=== PATIENT | female | born 1975 | race African-American/Black ===

== ENCOUNTER 2016-11-26 11:37 | Emergency (ER) | payer MEDICAID ==
[2016-11-26] MEDS ORDERED: KETOROLAC TROMETHAMINE 60 MG/2 ML SDV IM ONE (11:56)
[2016-11-26] MEDS ORDERED: ONDANSETRON 4 MG TAB.RAPDIS SL ONE (11:56)
--- NOTE | 2016-11-26 11:58 | ER Document Report ---
ED GI/ - General Chief Complaint: Flank Pain Stated Complaint: RIGHT FLANK PAIN Time Seen by Provider: 11/26/16 11:51 Mode of Arrival: Wheelchair Information source: Patient TRAVEL OUTSIDE OF THE [place] IN LAST 30 DAYS: No - HPI Patient complains to provider of: Flank pain, Vomiting Onset: Yesterday Timing/Duration: Persistent, Waxing and waning Quality of pain: Achy, Sharp Severity at maximum: Severe Severity in ED: Severe Location: Right flank Associated symptoms: Nausea, Vomiting Notes: 11/26/16 11:57 Patient is a 41-year-old female who presents to the emergency room complaining of sharp stabbing right-sided flank pain that started yesterday, it is constant but the sharp increased nature comes and goes, she reports associated nausea and vomiting, denies any diarrhea, no dysuria, reports a history of similar type symptoms approximately 7 years ago when she had a cholecystectomy - Related Data Allergies/Adverse Reactions: aspirin Allergy (Mild, Verified 11/26/16 11:45) Syncope Past Medical History - General Information source: Patient - Social History Smoking Status: Never Smoker Family History: Reviewed & Not Pertinent Patient has suicidal ideation: No Patient has homicidal ideation: No - Past Medical History Cardiac Medical History: Reports: Hx Hypertension Endocrine Medical History: Reports: Hx Hypothyroidism Renal/ Medical History: Denies: Hx Peritoneal Dialysis Past Surgical History: Reports: Hx Cardiac Surgery - Immunizations Immunizations up to date: Yes Hx Diphtheria, Pertussis, Tetanus Vaccination: Yes Review of Systems - Review of Systems Constitutional: No symptoms reported EENT: No symptoms reported Cardiovascular: No symptoms reported Respiratory: No symptoms reported Gastrointestinal: See HPI Genitourinary: See HPI Female Genitourinary: No symptoms reported Musculoskeletal: No symptoms reported Skin: No symptoms reported Hematologic/Lymphatic: No symptoms reported Neurological/Psychological: No symptoms reported -: Yes All other systems reviewed and negative Physical Exam - Vital signs Vitals: Pulse Resp BP Pulse Ox 62 16 136/78 H 100 11/26/16 11:46 11/26/16 11:46 11/26/16 11:46 11/26/16 11:46 Interpretation: Normal - General General appearance: Alert In distress: None - appears in pain - HEENT Head: Normocephalic, Atraumatic Eyes: Normal Pupils: PERRL - Respiratory Respiratory status: No respiratory distress Chest status: Nontender Breath sounds: Normal Chest palpation: Normal - Cardiovascular Rhythm: Regular Heart sounds: Normal auscultation Murmur: No - Abdominal Inspection: Normal Distension: No distension Bowel sounds: Normal Tenderness: Nontender Organomegaly: No organomegaly - Back Back: Normal, CVA tenderness - right side - Extremities General upper extremity: Normal inspection, Nontender, Normal color, Normal ROM , Normal temperature General lower extremity: Normal inspection, Nontender, Normal color, Normal ROM , Normal temperature, Normal weight bearing. No: Sandeep's sign - Neurological Neuro grossly intact: Yes Cognition: Normal Orientation: AAOx4 [place] Coma Scale Eye Opening: Spontaneous [place] Coma Scale Verbal: Oriented [place] Coma Scale Motor: Obeys Commands Farrukh Coma Scale Total: 15 Speech: Normal Motor strength normal: LUE, RUE, LLE, RLE Sensory: Normal - Psychological Associated symptoms: Normal affect, Normal mood - Skin Skin Temperature: Warm Skin Moisture: Dry Skin Color: Normal Course - Vital Signs Vital signs: Temp Pulse Resp BP Pulse Ox 62 16 136/78 H 100 11/26/16 11:46 11/26/16 11:46 11/26/16 11:46 11/26/16 11:46
[2016-11-26 13:35] LABS: ALANINE AMINOTRANSFERASE 28 U/L (9-52); ALKALINE PHOSPHATASE 59 U/L (38-126); ANION GAP 13 (5-19); ASPARTATE AMINO TRANSFERASE 21 U/L (14-36); BILIRUBIN,DIRECT 0.3 mg/dL (0.0-0.4); BILIRUBIN,TOTAL 0.6 mg/dL (0.2-1.3); BLOOD UREA NITROGEN 16 mg/dL (7-20); CALCIUM 9.6 mg/dL (8.4-10.2); CARBON DIOXIDE 23 mmol/L (22-30); CHLORIDE 103 mmol/L (98-107); CREATININE RESULT 1.45 mg/dL (0.52-1.25); GLUCOSE 104 mg/dL (75-110); LIPASE 76.5 U/L (23-300); POTASSIUM 4.3 mmol/L (3.6-5.0); SODIUM 139.3 mmol/L (137-145); TOTAL PROTEIN 7.8 g/dL (6.3-8.2)
[2016-11-26 13:41] LABS: ABSOLUTE BASOPHILS # (AUTO) 0.1 10^3/uL (0.0-0.2); ABSOLUTE EOSINOPHILS # (AUTO) 0.1 10^3/uL (0.0-0.6); ABSOLUTE LYMPHOCYTES (AUTO) 0.7 10^3/uL (0.5-4.7); ABSOLUTE MONOCYTES (AUTO) 0.4 10^3/uL (0.1-1.4); ABSOLUTE NEUT (AUTO) 4.4 10^3/uL (1.7-8.2); BASOPHILS % (AUTO) 1.1 % (0-2); EOSINOPHILS % (AUTO) 1.1 % (0-6); HEMATOCRIT 35.9 % (36.0-47.0); HEMOGLOBIN 11.4 g/dL (12.0-15.5); HGB HCT DIFFERENCE -1.7; MEAN CORPUSCULAR HEMOGLOBIN 26.1 pg (27.0-33.4); MEAN CORPUSCULAR HGB CONC 31.8 g/dL (32.0-36.0); MEAN CORPUSCULAR VOLUME 82 fl (80-97); MONOCYTES % (AUTO) 6.3 % (3-13); RED BLOOD COUNT 4.37 10^6/uL (3.72-5.28); RED CELL DISTRIBUTION WIDTH 17.2 % (11.5-14.0); SEGMENTED NEUTROPHILS % (AUTO) 78.5 % (42-78); WHITE BLOOD COUNT 5.6 10^3/uL (4.0-10.5)
[2016-11-26 14:18] LABS: APPEARANCE,URINE SLIGHTLY-CLOUDY; BILIRUBIN,URINE NEGATIVE (NEGATIVE); GLUCOSE, URINE NEGATIVE (NEGATIVE); KETONES,URINE NEGATIVE (NEGATIVE); PROTEIN,URINE 30 mg/dL (NEGATIVE); URINE SPECIFIC GRAVITY 1.024
[2016-11-26 14:19] LABS: BACTERIA,URINE TRACE /HPF; LEUKOCYTE ESTERASE,URINE SMALL (NEGATIVE); NITRITE,URINE NEGATIVE (NEGATIVE); UROBILINOGEN,URINE NEGATIVE mg/dL (<2.0)
--- NOTE | 2016-11-26 14:28 | RADIOLOGY REPORT (SQ) ---
EXAM DESCRIPTION: CT LTD RENAL STONE PROTOCOL ON COMPLETED DATE/TIME: 11/26/2016 2:11 pm REASON FOR STUDY: flank pain COMPARISON: None. TECHNIQUE: CT scan of the abdomen and pelvis performed without intravenous or oral contrast. Images reviewed with lung, soft tissue, and bone windows. Reconstructed coronal and sagittal MPR images revi ewed. All images stored on PACS. All CT scanners at this facility use dose modulation, iterative reconstruction, and/or weight based d osing when appropriate to reduce radiation dose to as low as reasonably achievable (ALARA). [facility]: Dose Right [facility]: CareDose [facility]: Dose Right [facility]: Teradose 4D [facility]: [employer] RADIATION DOSE: Up-to-date CT equipment and radiation dose reduction techniques were employed. CTDIv ol: 16.1 mGy. DLP: 922 mGy-cm.mGy. LIMITATIONS: None. FINDINGS: LOWER CHEST: No significant findings. No nodules or infiltrates. NON-CONTRASTED LIVER, SPLEEN, ADRENALS: Evaluation limited by lack of IV contrast. No identified sign ificant masses. PANCREAS: No masses. No peripancreatic inflammatory changes. GALLBLADDER: The gallbladder is not identified. RIGHT KIDNEY AND URETER: There is right perinephric stranding. There is mild right-sided hydronephr osis and hydroureter. These changes are secondary to a 4.6 mm right UVJ stone. LEFT KIDNEY AND URETER: No suspicious masses. Assessment limited by lack of IV contrast. No signifi cant calcifications. No hydronephrosis or hydroureter. AORTA AND RETROPERITONEUM: No aneurysm. No retroperitoneal masses or adenopathy. BOWEL AND PERITONEAL CAVITY: No obvious masses or inflammatory changes. No free fluid. APPENDIX: Normal. PELVIS, BLADDER, AND ABDOMINAL WALL:No abnormal masses. No free fluid. Bladder normal. BONES: No significant findings. OTHER: No other significant finding. IMPRESSION: Right-sided hydronephrosis and perinephric stranding secondary to a 4.6 mm right UVJ sto ne. TECHNICAL DOCUMENTATION: JOB ID: [id number] Quality ID # [id number]: Final reports with documentation of one or more dose reduction techniques (e.g., Au tomated exposure control, adjustment of the mA and/or kV according to patient size, use of iterative reconstruction technique) 2010 [employer]- All Rights Reserved
--- NOTE | 2016-11-26 14:35 | ER Document Report ---
ED GI/ - General Mode of Arrival: Wheelchair Information source: Patient TRAVEL OUTSIDE OF THE [place] IN LAST 30 DAYS: No - HPI Patient complains to provider of: Abdominal pain - right side, Flank pain - right Onset: Yesterday Location: Right flank Associated symptoms: Other - see notes above <REBEKAH BASHIR - Last Filed: 11/26/16 15:20> <MARY KAY CLEMENS - Last Filed: 11/26/16 22:37> - General Chief Complaint: Flank Pain Stated Complaint: RIGHT FLANK PAIN Time Seen by Provider: 11/26/16 11:51 Notes: 41 year old female with history of kidney stones, hypertension, and hypothyroidism presents to the ED complaining of right sided abdominal pain and right flank pain that started yesterday. Patient is also complaining of nausea and vomiting, but denies fever. (REBEKAH BASHIR) - Related Data Allergies/Adverse Reactions: aspirin Allergy (Mild, Verified 11/26/16 11:45) Syncope Past Medical History - General Information source: Patient - Social History Smoking Status: Never Smoker Chew tobacco use (# tins/day): No Frequency of alcohol use: None Drug Abuse: None Family History: Reviewed & Not Pertinent Patient has suicidal ideation: No Patient has homicidal ideation: No - Past Medical History Cardiac Medical History: Reports: Hx Hypertension Endocrine Medical History: Reports: Hx Hypothyroidism Renal/ Medical History: Denies: Hx Peritoneal Dialysis Past Surgical History: Reports: Hx Cardiac Surgery - Immunizations Immunizations up to date: Yes Hx Diphtheria, Pertussis, Tetanus Vaccination: Yes <REBEKAH BASHIR - Last Filed: 11/26/16 15:20> Review of Systems - Review of Systems Constitutional: No symptoms reported. denies: Fever EENT: No symptoms reported Cardiovascular: No symptoms reported Respiratory: No symptoms reported Gastrointestinal: See HPI, Abdominal pain - right, Nausea, Vomiting Genitourinary: See HPI, Flank pain - right Female Genitourinary: No symptoms reported Musculoskeletal: No symptoms reported Skin: No symptoms reported Hematologic/Lymphatic: No symptoms reported Neurological/Psychological: No symptoms reported -: Yes All other systems reviewed and negative <REBEKAH BASHIR - Last Filed: 11/26/16 15:20> Physical Exam - General General appearance: Alert In distress: None - HEENT Head: Normocephalic, Atraumatic Eyes: Normal Extraocular movements intact: Yes Pupils: PERRL - Respiratory Respiratory status: No respiratory distress Breath sounds: Normal - Cardiovascular Rhythm: Regular Heart sounds: Normal auscultation - Abdominal Inspection: Normal Distension: No distension Tenderness: Nontender - Back Back: CVA tenderness - right. No: Normal - Extremities General upper extremity: Normal inspection, Normal ROM General lower extremity: Normal inspection, Normal ROM - Neurological Neuro grossly intact: Yes Cognition: Normal Orientation: AAOx4 [place] Coma Scale Eye Opening: Spontaneous [place] Coma Scale Verbal: Oriented [place] Coma Scale Motor: Obeys Commands Farrukh Coma Scale Total: 15 Speech: Normal - Psychological Associated symptoms: Normal affect, Normal mood - Skin Skin Temperature: Warm Skin Moisture: Dry Skin Color: Normal <REBEKAH BASHIR - Last Filed: 11/26/16 15:20> Course - Laboratory Result Diagrams: 11/26/16 12:34 11/26/16 12:34 <REBEKAH BASHIR - Last Filed: 11/26/16 15:20> - Laboratory Result Diagrams: 11/26/16 12:34 11/26/16 12:34 - Diagnostic Test Radiology reviewed: Reports reviewed <MARY KAY CLEMENS - Last Filed: 11/26/16 22:37> - Re-evaluation Re-evalutation: 11/26/16 Patient is a 40-year-old female who presents with flank pain, nausea and vomiting. Patient with 4.6 mm stone at UVJ in the right. Patient should be able to pass this on her own. Pain is controlled at this time. Patient will be discharged with Flomax, pain and nausea medicine. Stable for discharge. (MARY KAY CLEMENS) - Vital Signs Vital signs: Temp Pulse Resp BP Pulse Ox 97.6 F 63 18 128/83 H 98 11/26/16 14:41 11/26/16 14:41 11/26/16 14:41 11/26/16 14:41 11/26/16 14:41 - Laboratory Laboratory results interpreted by me: 11/26/16 11/26/16 11/26/16 12:34 12:34 12:34 Hgb 11.4 L Hct 35.9 L MCH 26.1 L MCHC 31.8 L RDW 17.2 H Seg Neutrophils % 78.5 H Creatinine 1.45 H Est GFR ( Amer) 48 L Est GFR (Non-Af Amer) 39 L Urine Protein 30 H Urine Blood LARGE H Ur Leukocyte Esterase SMALL H Discharge <REBEKAH BASHIR - Last Filed: 11/26/16 15:20> <MARY KAY CLEMENS - Last Filed: 11/26/16 22:37> - Discharge Clinical Impression: Kidney stone Condition: Stable Disposition: HOME, SELF-CARE Instructions: Kidney Stone ([facility]) Prescriptions: Ondansetron [Zofran Odt 4 mg Tablet] 1 tab PO Q6HP PRN #15 tab.rapdis PRN Reason: For Nausea/Vomiting Docusate Sodium [Colace 100 mg Capsule] 100 mg PO BID #60 capsule Oxycodone HCl/Acetaminophen [Percocet 5-325 mg Tablet] 1 - 2 tab PO Q4H PRN #20 tablet PRN Reason: Tamsulosin HCl [Flomax 0.4 mg Cap.sr] 0.4 mg PO DAILY #14 cap.sr.24h Forms: Return to Work Referrals: KHADIJAH ALEXANDER MD [ACTIVE STAFF] - Follow up as needed Scribe Attestation: 11/26/16 22:37 I personally performed the services described in the documentation, reviewed and edited the documentation which was dictated to the scribe in my presence, and it accurately records my words and actions. (MARY KAY CLEMENS) Scribe Documentation - Scribe Written by Scribe:: Viridiana Madrigal, 11/26/2016 1552 acting as scribe for :: Mak <REBEKAH BASHIR - Last Filed: 11/26/16 15:20>
--- NOTE | 2016-11-26 14:36 | ER Document Report ---
ED GI/ - General Chief Complaint: Flank Pain Stated Complaint: RIGHT FLANK PAIN Time Seen by Provider: 11/26/16 11:51 Mode of Arrival: Wheelchair TRAVEL OUTSIDE OF THE [place] IN LAST 30 DAYS: No - Related Data Allergies/Adverse Reactions: aspirin Allergy (Mild, Verified 11/26/16 11:45) Syncope Past Medical History - General Information source: Patient - Social History Smoking Status: Never Smoker Chew tobacco use (# tins/day): No Frequency of alcohol use: None Drug Abuse: None Family History: Reviewed & Not Pertinent Patient has suicidal ideation: No Patient has homicidal ideation: No - Past Medical History Cardiac Medical History: Reports: Hx Hypertension Endocrine Medical History: Reports: Hx Hypothyroidism Renal/ Medical History: Denies: Hx Peritoneal Dialysis Past Surgical History: Reports: Hx Cardiac Surgery - Immunizations Immunizations up to date: Yes Hx Diphtheria, Pertussis, Tetanus Vaccination: Yes Physical Exam - Vital signs Vitals: Pulse Resp BP Pulse Ox 62 16 136/78 H 100 11/26/16 11:46 11/26/16 11:46 11/26/16 11:46 11/26/16 11:46 Course - Vital Signs Vital signs: Temp Pulse Resp BP Pulse Ox 62 16 136/78 H 100 11/26/16 11:46 11/26/16 11:46 11/26/16 11:46 11/26/16 11:46 - Laboratory Result Diagrams: 11/26/16 12:34 11/26/16 12:34 Laboratory results interpreted by me: 11/26/16 11/26/16 11/26/16 12:34 12:34 12:34 Hgb 11.4 L Hct 35.9 L MCH 26.1 L MCHC 31.8 L RDW 17.2 H Seg Neutrophils % 78.5 H Creatinine 1.45 H Est GFR ( Amer) 48 L Est GFR (Non-Af Amer) 39 L Urine Protein 30 H Urine Blood LARGE H Ur Leukocyte Esterase SMALL H Discharge - Discharge Clinical Impression: Kidney stone Condition: Stable Disposition: HOME, SELF-CARE Instructions: Kidney Stone ([facility]) Prescriptions: Ondansetron [Zofran Odt 4 mg Tablet] 1 tab PO Q6HP PRN #15 tab.rapdis PRN Reason: For Nausea/Vomiting Docusate Sodium [Colace 100 mg Capsule] 100 mg PO BID #60 capsule Oxycodone HCl/Acetaminophen [Percocet 5-325 mg Tablet] 1 - 2 tab PO Q4H PRN #20 tablet PRN Reason: Tamsulosin HCl [Flomax 0.4 mg Cap.sr] 0.4 mg PO DAILY #14 cap.sr.24h Forms: Return to Work Referrals: KHADIJAH ALEXADNER MD [ACTIVE STAFF] - Follow up as needed
[2016-11-26 14:43] VITALS: BP 128/83
--- NOTE | 2016-11-26 21:14 | ER Document Report ---
ED Medical Screen (RME) - General Chief Complaint: Flank Pain Stated Complaint: RIGHT FLANK PAIN Time Seen by Provider: 11/26/16 11:51 Mode of Arrival: Wheelchair TRAVEL OUTSIDE OF THE [place] IN LAST 30 DAYS: No - HPI Patient complains to provider of: flank pain Notes: 11/26/16 11:57 Patient is a 41-year-old female who presents to the emergency room complaining of sharp stabbing right-sided flank pain that started yesterday, it is constant but the sharp increased nature comes and goes, she reports associated nausea and vomiting, denies any diarrhea, no dysuria, reports a history of similar type symptoms approximately 7 years ago when she had a cholecystectomy - Related Data Allergies/Adverse Reactions: aspirin Allergy (Mild, Verified 11/26/16 11:45) Syncope Past Medical History - Social History Chew tobacco use (# tins/day): No Frequency of alcohol use: None Drug Abuse: None - Past Medical History Cardiac Medical History: Reports: Hx Hypertension Endocrine Medical History: Reports: Hx Hypothyroidism Renal/ Medical History: Denies: Hx Peritoneal Dialysis Past Surgical History: Reports: Hx Cardiac Surgery - Immunizations Immunizations up to date: Yes Hx Diphtheria, Pertussis, Tetanus Vaccination: Yes Physical Exam - Vital signs Vitals: Pulse Resp BP Pulse Ox 62 16 136/78 H 100 11/26/16 11:46 11/26/16 11:46 11/26/16 11:46 11/26/16 11:46 Course - Vital Signs Vital signs: Temp Pulse Resp BP Pulse Ox 97.6 F 63 18 128/83 H 98 11/26/16 14:41 11/26/16 14:41 11/26/16 14:41 11/26/16 14:41 11/26/16 14:41 - Laboratory Result Diagrams: 11/26/16 12:34 11/26/16 12:34 Laboratory results interpreted by me: 11/26/16 11/26/16 11/26/16 12:34 12:34 12:34 Hgb 11.4 L Hct 35.9 L MCH 26.1 L MCHC 31.8 L RDW 17.2 H Seg Neutrophils % 78.5 H Creatinine 1.45 H Est GFR ( Amer) 48 L Est GFR (Non-Af Amer) 39 L Urine Protein 30 H Urine Blood LARGE H Ur Leukocyte Esterase SMALL H Doctor's Discharge - Discharge Clinical Impression: Kidney stone Condition: Stable Disposition: HOME, SELF-CARE Instructions: Kidney Stone ([facility]) Prescriptions: Ondansetron [Zofran Odt 4 mg Tablet] 1 tab PO Q6HP PRN #15 tab.rapdis PRN Reason: For Nausea/Vomiting Docusate Sodium [Colace 100 mg Capsule] 100 mg PO BID #60 capsule Oxycodone HCl/Acetaminophen [Percocet 5-325 mg Tablet] 1 - 2 tab PO Q4H PRN #20 tablet PRN Reason: Tamsulosin HCl [Flomax 0.4 mg Cap.sr] 0.4 mg PO DAILY #14 cap.sr.24h Forms: Return to Work Referrals: KHADIJAH ALEXANDER MD [ACTIVE STAFF] - Follow up as needed
== END 2016-11-26 14:43 | disposition home or self-care (01) ==
LOC: ER 11:37
DX: N13.2 Hydronephrosis with renal and ureteral calculous obstruction (principal); R11.2 Nausea with vomiting, unspecified; R10.9 Unspecified abdominal pain; I10 Essential (primary) hypertension; Z90.49 Acquired absence of other specified parts of digestive tract; Z88.6 Allergy status to analgesic agent
CPT/HCPCS: 99284; 96372; 36415; 87086; 83690; 84703; 85025; 80053; 81001; 76380; J1885; S0119

== ENCOUNTER → 2017-05-23 | Outpatient (CLI) | payer MEDICAID ==
[2017-05-23 10:32] LABS: POTASSIUM 4.3 mmol/L (3.6-5.0)
== END ==
LOC: OD 09:38
PROVIDERS: ATTEND Nurse Practitioner Acute Care
DX: E87.1 Hypo-osmolality and hyponatremia (principal)
CPT/HCPCS: 36415; 80051

== ENCOUNTER 2017-11-11 06:04 | Emergency (ER) | payer SELFPAY ==
[2017-11-11] MEDS ORDERED: MECLIZINE HCL 25 MG TABLET PO ONE (06:58)
[2017-11-11] MEDS ORDERED: ONDANSETRON HCL INJ/PF 4 MG/2 ML SDV IM ONE (06:58)
--- NOTE | 2017-11-11 06:58 | ER Document Report ---
ED Dizziness/Weakness - General Mode of Arrival: Ambulatory Information source: Patient TRAVEL OUTSIDE OF THE [place] IN LAST 30 DAYS: No - General Chief Complaint: Dizziness Stated Complaint: DIZZY/VOMITING Time Seen by Provider: 11/11/17 06:43 Notes: Patient is a 41-year-old female with hypertension, depression and hypothyroidism presents to the emergency department complaining of dizziness onset yesterday. Patient states that the dizziness is severely exacerbated when laying down and moving head from side to side. Patient's associated symptoms include nausea. Patient is currently taking Celexia, Sartell Thyroid and Lisinopril. (MAYKEL,TAMAYA) - Related Data Allergies/Adverse Reactions: aspirin Allergy (Mild, Verified 11/11/17 06:05) Syncope Past Medical History - General Information source: Patient - Social History Smoking Status: Never Smoker Chew tobacco use (# tins/day): No Frequency of alcohol use: None Drug Abuse: None Family History: Reviewed & Not Pertinent Patient has suicidal ideation: No Patient has homicidal ideation: No - Past Medical History Cardiac Medical History: Reports: Hx Hypertension Endocrine Medical History: Reports: Hx Hypothyroidism Past Surgical History: Reports: Hx Cardiac Surgery - in 1999., Hx Cholecystectomy - Immunizations Immunizations up to date: Yes Hx Diphtheria, Pertussis, Tetanus Vaccination: Yes Review of Systems - Review of Systems Constitutional: No symptoms reported EENT: No symptoms reported Cardiovascular: See HPI, Dizziness Respiratory: No symptoms reported Gastrointestinal: See HPI, Nausea Genitourinary: No symptoms reported Female Genitourinary: No symptoms reported Musculoskeletal: No symptoms reported Skin: No symptoms reported Hematologic/Lymphatic: No symptoms reported Neurological/Psychological: No symptoms reported -: Yes All other systems reviewed and negative Physical Exam - General General appearance: Appears well, Alert In distress: None - HEENT Head: Normocephalic, Atraumatic Eyes: Normal Conjunctiva: Normal Extraocular movements intact: Yes - Lateral gaze nystagmus, worsened with head movement. Pupils: PERRL Neck: Normal - Respiratory Respiratory status: No respiratory distress Chest status: Nontender Breath sounds: Normal Chest palpation: Normal - Cardiovascular Rhythm: Regular Heart sounds: Normal auscultation Murmur: No - Back Back: Normal - Extremities General upper extremity: Normal ROM General lower extremity: Normal ROM - Neurological Neuro grossly intact: Yes Cognition: Normal Orientation: AAOx4 Far[place]kh Coma Scale Eye Opening: Spontaneous Ernest Coma Scale Verbal: Oriented Ernest Coma Scale Motor: Obeys Commands Ernest Coma Scale Total: 15 Speech: Normal - Psychological Associated symptoms: Normal affect, Normal mood - Skin Skin Temperature: Warm Skin Moisture: Dry Skin Color: Normal - Vital signs Vitals: Temp Pulse Resp BP Pulse Ox 97.9 F 55 L 20 152/97 H 97 11/11/17 06:09 11/11/17 06:09 11/11/17 06:11/11/17 06:11/11/17 06:09 Course - Re-evaluation Re-evalutation: 11/11/17 10:02 Patient symptoms are much improved. She has some mild symptoms when she turns or lays down. She demonstrated this for me while standing in her rapidly looking back and forth and up and down. Previously when she did this it provoked immediate vomiting that lasted for quite some time. She does agree that she is much better but symptoms are not completely gone. (EDMOND BALTAZAR) - Vital Signs Vital signs: Temp Pulse Resp BP Pulse Ox 97.4 F 56 L 18 134/95 H 98 11/11/17 10:09 11/11/17 10:09 11/11/17 10:09 11/11/17 10:09 11/11/17 10:09 Discharge - Discharge Clinical Impression: Vertigo Condition: Stable Disposition: HOME, SELF-CARE Additional Instructions: Vertigo: You have experienced an episode of vertigo -- a whirling dizziness which may be accompanied by nausea and vomiting or staggering. Vertigo is often caused by an irritation of the inner ear, in which case it is called labyrinthitis. It can also be a symptom of a degenerating inner ear, nerve damage, or brain injury. Your physician has evaluated you to determine whether any further testing is necessary. Vertigo is often treated with dramamine or meclizine. These medications are helpful, but stronger medication may be needed if you are vomiting. Rest in bed. You should not drive or operate machinery until completely better. It may take one to three weeks for recovery. If there are new symptoms, such as decreased hearing or vision, severe headache, weakness or faintness, or confusion, call the physician. Take medication as prescribed to suppress your dizziness symptoms. Follow the instructions listed above about managing vertigo. Follow-up with your primary care provider if not improving. RETURN TO THE EMERGENCY ROOM IF ANY NEW OR WORSENING SYMPTOMS. Prescriptions: Meclizine HCl [Antivert 25 mg Tablet] 25 mg PO TID PRN #30 tablet PRN Reason: Referrals: MARCO BLOCK NP [Primary Care Provider] - Follow up as needed Viridiana Attestation: 11/11/17 08:03 I personally performed the services described in the documentation, reviewed and edited the documentation which was dictated to the scribe in my presence, and it accurately records my words and actions. (EDMOND BALTAZAR) [place] Documentation - Scribe Written by Viridiana:: Viridiana Segovia, 11/11/2017 07:21 acting as scribe for :: Chantell
[2017-11-11] MEDS ORDERED: ONDANSETRON 4 MG TAB.RAPDIS PO ONE (07:09)
[2017-11-11 10:10] VITALS: BP 134/95
== END 2017-11-11 10:10 | disposition home or self-care (01) ==
LOC: ER 06:04
DX: R42 Dizziness and giddiness (principal); R11.0 Nausea; I10 Essential (primary) hypertension; F32.9 Major depressive disorder, single episode, unspecified; E03.9 Hypothyroidism, unspecified; Z79.899 Other long term (current) drug therapy
CPT/HCPCS: 99284; S0119